=== PATIENT | female | born 1965 | race Caucasian/White ===

== ENCOUNTER 2021-02-10 09:46 | Day surgery (SDC) | payer BC, OTHER ==
[2021-02-10] MEDS: Sodium Chloride 0.9% 1,000 ML IV SCH (10:18)
[2021-02-10] MEDS ORDERED: Propofol 200 MG/20 ML SDV ONE (11:57)
[2021-02-10] MEDS ORDERED: Lidocaine 2% 5 ML SDV ONE (12:10)
[2021-02-10 13:32] VITALS: BP 129/60; PULSE 61
--- NOTE | 2021-02-11 09:27 | OR ---
DATE OF PROCEDURE: 02/10/2021 SURGEON: Suman Rosa MD PROCEDURE: Colonoscopy. FINDINGS: Normal colonoscopy. COMPLICATIONS: None. [employer] OPERATOR: None. PREOPERATIVE DIAGNOSIS: Screening colonoscopy. POSTOPERATIVE DIAGNOSIS: Screening colonoscopy. RISKS: Risks, benefits, alternatives, and limitations including, but not limited to infection, bleeding, perforation, false positives and false negatives were explained to the patient and she wished to proceed. PROCEDURE IN DETAIL: The patient was placed in left lateral decubitus position. Digital rectal exam was performed without abnormality. Scope was introduced and advanced atraumatically to the ileocecal valve. The scope was brought back to the ascending, transverse, descending colon, and retroflexed. No evidence of old or new blood. No masses. No polyps. No diverticulosis. No abnormalities on retroflexion. The patient was noted to have mild external hemorrhoids. She tolerated the procedure well. Suman Rosa MD /[id number]
== END 2021-02-10 13:56 | disposition home or self-care (01) ==
LOC: JP.SDS 09:46
PROVIDERS: ATTEND Surgery
DX: R19.4 Change in bowel habit (principal); E03.9 Hypothyroidism, unspecified; K21.9 Gastro-esophageal reflux disease without esophagitis; Z88.2 Allergy status to sulfonamides; Z87.891 Personal history of nicotine dependence; Z79.82 Long term (current) use of aspirin; Z79.899 Other long term (current) drug therapy; Z79.890 Hormone replacement therapy
CPT/HCPCS: J2704; J7030